=== PATIENT | male | born 1965 | race Caucasian/White ===

== ENCOUNTER 2016-12-11 11:59 | Emergency (ER) | payer OTHER ==
[~2016-12-11] VITALS: Ht 188 cm; Wt 109.0 kg
[~2016-12-11 11:59] MED LIST: BACTDS PO; IBUP400T22 PO; QUET400T PO
[2016-12-11 12:10] VITALS: Ht 188 cm; Wt 109.0 kg
[2016-12-11] MEDS ORDERED: SOD CHLORIDE 0.9% 1,000 ML IV STA (12:27)
[2016-12-11 12:46] LABS: ADD SCAN DIFF NO
[2016-12-11 12:50] LABS: ABNORMAL IP MESSAGE 1; BASOPHILS % 0.3 % (0.0-2.0); EOSINOPHILS # 0.1 10^3/ul (0.0-0.5); EOSINOPHILS % 1.8 % (0.0-7.0); HEMOGLOBIN 12.3 g/dl (14.0-18.0); LYMPHOCYTES % 59.8 % (15.0-51.0); MEAN CORPUSCULAR HEMOGLOBIN 32.3 pg (29.0-33.0); MEAN CORPUSCULAR HGB CONC 35.1 g/dl (32.0-37.0); MEAN CORPUSCULAR VOLUME 91.9 fl (82.0-101.0); MEAN PLATELET VOLUME 10.6 fl (7.4-10.4); MONOCYTE # 0.3 10^3/ul (0.3-0.9); MONOCYTES % 9.1 % (0.0-11.0); NEUTROPHIL # 0.9 10^3/ul (1.6-7.5); NEUTROPHILS % 28.7 % (39.0-77.0); PLATELET COUNT 91 10^3/UL (140-415); RED BLOOD COUNT 3.81 10^6/ul (4.70-6.10); RED CELL DISTRIBUTION WIDTH 13.7 % (11.5-14.5); WHITE BLOOD COUNT 3.3 10^3/ul (4.8-10.8)
[2016-12-11 13:03] LABS: INR 1.13; PARTIAL THROMBOPLASTIN TIME 25.5 Sec (25.0-35.0); PROTIME 14.5 Sec (12.2-14.2); PT RATIO 1.1
[2016-12-11 13:04] LABS: LACTIC ACID 2.2 mmol/L (0.5-2.2)
[2016-12-11 13:12] LABS: ALBUMIN 3.5 g/dl (3.3-4.9); CHLORIDE 102 mmol/L (97-110); SODIUM 137 mmol/L (135-144)
[2016-12-11 13:15] LABS: ALANINE AMINOTRANSFERASE 36 IU/L (13-69); ALKALINE PHOSPHATASE 64 IU/L (42-121); ANION GAP 10 (8-16); ASPARTATE AMINO TRANSFERASE 24 IU/L (15-46); BILIRUBIN,INDIRECT 0.2 mg/dl (0-1.1); BILIRUBIN,TOTAL 0.2 mg/dl (0.2-1.3); BLOOD UREA NITROGEN 11 mg/dl (7-20); CARBON DIOXIDE 28 mmol/L (21-31); CREATINE KINASE 82 IU/L (23-200); CREATININE 0.62 mg/dl (0.61-1.24); GLUCOSE 116 mg/dl (70-220)
[2016-12-11 13:16] LABS: CALCIUM 8.8 mg/dl (8.4-10.2)
[2016-12-11 13:17] LABS: CK-MB 2.69 ng/ml (0.0-2.4); ETHANOL < 10.0 mg/dl; TROPONIN-I < 0.012 ng/ml (0.00-0.12)
--- NOTE | 2016-12-11 13:26 | RADRPT ---
PROCEDURE: XR Chest. CLINICAL INDICATION: chest pain, altered mental status TECHNIQUE: Single frontal view of the chest was obtained COMPARISON: None FINDINGS: The heart and mediastinum are within normal limits. The lungs are clear. There is no pleural effusion or pneumothorax. RPTAT: AA IMPRESSION: No acute disease. .Je Tan MD, MD Date Time Electronically viewed and signed by .Je Tan MD, on 12/11/2016 13:25 .S/
--- NOTE | 2016-12-11 13:30 | RADRPT ---
PROCEDURE: CT Brain without. CLINICAL INDICATION: Altered mental status. TECHNIQUE: A CT of the brain was performed on multidetector high-resolution CT scanner utilizing a xial sections from the skull base through the vertex without contrast. The scan was reviewed in sof t tissue brain and high frequency resolution bone algorithm windows. Images were reviewed on a high -resolution PACS workstation. One or more the following does reduction techniques were utilized: Aut omated exposure control, adjustment of the mA/ or kV according to patient's size, or use of iterativ e reconstruction technique. The exam CTDI = 44.26 mGy and the DLP = 720.23 mGy-cm. COMPARISON: None available. FINDINGS: The ventricles and sulci are minimally prominent indicative of volume loss. There is no intracranial hemorrhage, mass effect or midline shift. No abnormal intra-axial or extra-axial fluid collections are seen. The strange/white matter differentiation is preserved. There are minimal scattered foci of hypoattenuation in the white matter, which are nonspecific in et iology but likely reflect chronic small vessel ischemic changes. There are minimal intracranial vas cular calcifications consistent with atherosclerosis. Mild deformity of the right lamina papyracea i s noted, likely chronic. The visualized paranasal sinuses are essentially clear. IMPRESSION: 1. No acute intracranial hemorrhage, transcortical infarction or mass effect. 2. Minimal intracranial atherosclerosis and chronic small vessel ischemic changes. 3. Minimal generalized cerebral volume loss. RPTAT: HH .Mesfin Calderon MD, MD Date Time Electronically viewed and signed by .Mesfin Calderon MD, MD on 12/11/2016 13:30 .N/
--- NOTE | 2016-12-11 13:54 | ERD ---
ER Documentation Chief Complaint Date/Time DATE: 12/11/16 TIME: 13:47 Chief Complaint homeless states sick and total body pain HPI This is a 51-year-old male that was brought into the emergency department by EMS. The patient is homeless and was sleeping on the side of the street. A bystander phone 911. When EMS arrived the patient stated he was experiencing diffuse myalgias. He was unable to indicate when his body aches began. He denies any fever shaking or chills. The patient denied a headache or changes in vision. The patient was very reluctant to provide any further history and appeared very guarded. He however denied any suicidal homicidal thoughts ideations. He was denying any auditory tactile or visual hallucinations. ROS All systems reviewed and are negative except as per history of present illness. Medications Home Meds Reported Medications Quetiapine Fumarate* (Seroquel*) 400 Mg Tablet, 400 MG PO HS, TAB 09/02/14 Ibuprofen* (Motrin*) 400 Mg Tab, 400 MG PO TID Y for PAIN, TAB 09/02/14 Discontinued Scripts Sulfamethoxazole-Trimethoprim* (Bactrim* DS) 800-160 Mg Tab, 1 TAB PO BID for 10 Days, TAB Prov:ASHVIN SCANLON PA-C 07/07/15 Allergies Allergies: Coded Allergies: No Known Allergy (Unverified , 09/02/14) PMhx/Soc Medical and Surgical Hx: pt denies Medical Hx, pt denies Surgical Hx History of Surgery: No Anesthesia Reaction: No Hx Neurological Disorder: No Hx Respiratory Disorders: No Hx Cardiac Disorders: No Hx Psychiatric Problems: No Hx Miscellaneous Medical Probl: No Hx Alcohol Use: Yes Hx Substance Use: No Hx Tobacco Use: Yes Smoking Status: Current some day smoker Physical Exam Vitals Vital Signs Date Time Temp Pulse Resp B/P Pulse Ox O2 Delivery O2 Flow Rate FiO2 12/11/16 12:10 97.7 111 18 123/65 95 Physical Exam Constitutional:Well-developed. Disheveled. HEENT:Normocephalic. Atraumatic.Pupils were equal round reactive to light. Moist mucous membranes.No tonsillar exudates. No nasoseptal hematoma. No hemotympanum. Neck: No nuchal rigidity. No lymphadenopathy. No posterior cervical spine tenderness or step-offs. Respiratory: Not using accessory muscles of respiration.Lungs were clear to auscultation bilaterally. No rhonchi. No rales. No wheezing. Cardiovascular: Regular rate regular rhythm.No murmurs. No rubs were appreciated.S1, S2 normal. Distal pulses are palpable 2+ bilaterally. GI: Abdomen was soft. Nontender. Non Distended. No pulsatile abdominal masses or bruits. No rebound. No guarding. Bowel sounds were present and normal. Muscle skeletal: Full range of motion of both the upper and lower extremities bilaterally.Normal muscle tone.No assymetrical calf tenderness or swelling. Skin: No petechia, no purpura. No maculopapular rash. I am unable to appreciate for any ulcers of the patient's feet as the patient was refusing to take off his shoes or pants for complete examination NEURO: Patient was alert to person but not to place or time. Drowsy but easily arousable. The patient appeared very guarded and was reluctant to answer many questions. He however denied any suicidal homicidal thoughts ideations. No focal neurological deficits. Result Diagram: 12/11/16 1230 12/11/16 1230 Results 24 hrs Laboratory Tests Test 12/11/16 12:30 White Blood Count 3.310^3/ul Red Blood Count 3.8110^6/ul Hemoglobin 12.3g/dl Hematocrit 35.0% Mean Corpuscular Volume 91.9fl Mean Corpuscular Hemoglobin 32.3pg Mean Corpuscular Hemoglobin Concent 35.1g/dl Red Cell Distribution Width 13.7% Platelet Count 9110^3/UL Mean Platelet Volume 10.6fl Neutrophils % 28.7% Lymphocytes % 59.8% Monocytes % 9.1% Eosinophils % 1.8% Basophils % 0.3% Nucleated Red Blood Cells % 0.0/100WBC Neutrophils # 0.910^3/ul Lymphocytes # 2.010^3/ul Monocytes # 0.310^3/ul Eosinophils # 0.110^3/ul Basophils # 0.010^3/ul Nucleated Red Blood Cells # 0.010^3/ul Prothrombin Time 14.5Sec Prothrombin Time Ratio 1.1 INR International Normalized Ratio 1.13 Activated Partial Thromboplast Time 25.5Sec Sodium Level 137mmol/L Potassium Level 3.0mmol/L Chloride Level 102mmol/L Carbon Dioxide Level 28mmol/L Anion Gap 10 Blood Urea Nitrogen 11mg/dl Creatinine 0.62mg/dl Glucose Level 116mg/dl Lactic Acid Level 2.2mmol/L Calcium Level 8.8mg/dl Total Bilirubin 0.2mg/dl Direct Bilirubin 0.00mg/dl Indirect Bilirubin 0.2mg/dl Aspartate Amino Transf (AST/SGOT) 24IU/L Alanine Aminotransferase (ALT/SGPT) 36IU/L Alkaline Phosphatase 64IU/L Ammonia 13umol/l Creatine Kinase 82IU/L Creatine Kinase Index 3.3 Creatinine Kinase MB (Mass) 2.69ng/ml Troponin I < 0.012ng/ml Total Protein 6.0g/dl Albumin 3.5g/dl Globulin 2.50g/dl Albumin/Globulin Ratio 1.40 Ethyl Alcohol Level < 10.0mg/dl Current Medications Medications (Trade) Dose Ordered Sig/Delvis Route PRN Reason Start Time Stop Time Status Last Admin Dose Admin Sodium Chloride (NS) 1,000 ml @ 1,000 mls/hr Q1H STAT IV 12/11/16 12:27 12/11/16 13:26 DC 12/11/16 12:48 Procedures/MDM The patient presented to the emergency department with an acute and persistent change in their mental status. The differential diagnosis is diverse however reversible causes such as hypoglycemia, opiate overdose, thiamine deficiency were immediately considered. The patient was placed on a cardiac monitor technician, continuous pulse oximetry and IV access was established. The patients airway was secure however hypoxic events such as anemia, shock, or severe pulmonary disease were all considered as etiologies in this patients presentation. Circulation assessed with good cap refill and did not require fluids or pressure support. Finger stick for rapid glucose determined to be normal. I obtained a CT scan of the patient's head which showed no acute intracerebral hemorrhage mass-effect or midline shift. Chest radiograph showed no infiltrates or pneumothorax. The patient leukopenia with no thrombocytopenia. There is no renal failure. 12 Lead EKG tracing ordered and reviewed by myself showed: Sinus tachycardia 106 bpm and no arrhythmia. FL interval normal. QRS duration normal. No ST segment elevation No ST segment depression. No changes consistent with acute ischemia. The patient had IV access was established by nursing staff and was given a liter bolus of 0.9 normal saline. Nursing staff approached me and indicated that the patient had become very belligerent. He began yelling at nursing staff. He had removed his own IV. He left with his belongings and had eloped without completion of treatment Departure Diagnosis: Primary Impression: Myalgia Condition: JESSIE Pope Dec 11, 2016 13:54
== END 2016-12-11 13:56 | disposition left against medical advice (07) ==
LOC: E/R 11:59
DX: M79.1 Myalgia (principal); R07.9 Chest pain, unspecified; F17.210 Nicotine dependence, cigarettes, uncomplicated; R41.82 Altered mental status, unspecified
CPT/HCPCS: 70450; 71010; 80053; 80306; 82140; 82550; 82553; 83605; 84484; 85025; 85610; 85730; 93005; J7030

== ENCOUNTER 2016-12-13 14:03 | Emergency (ER) | payer OTHER ==
[~2016-12-13] VITALS: Ht 185.4 cm; Wt 104.0 kg
[~2016-12-13 14:03] MED LIST changes: -BACTDS PO
[2016-12-13 14:22] VITALS: Ht 185.4 cm; Wt 104.0 kg
[2016-12-13] MEDS ORDERED: ALPR2TAB PO (16:56)
[2016-12-13] MEDS ORDERED: METH10SO PO (17:00)
[2016-12-13] MEDS ORDERED: IBUPROFEN 600 MG TAB PO ONE (17:30)
--- NOTE | 2016-12-14 13:50 | ERD ---
ER Documentation Chief Complaint Date/Time DATE: 12/13/16 TIME: 18:41 Chief Complaint AP X5 WEEKS "SINCE I'VE BEEN TAKEN OFF METHADONE" HPI 51 year old homeless male with a history of narcotic addiction s/p methadone for many years complaining of diffuse abdominal pain. He states the pain is intermittent, with associate diarrhea. No exacerbating or alleviating factors. He also has associated body aches. It has been going on for 5 weeks, ever since he stopped methadone. He denies constipation, hematochezia or melena. No fevers or chills. No weight loss or night sweats. He is asking for a shot of morphine as he thinks this will alleviate his pain. Per nurse, he was asking for food. ROS All systems reviewed and are negative except as per history of present illness. Medications Home Meds Reported Medications Methadone Hcl* (Methadone Hcl*) 10 Mg/5 Ml Solution, 80 MG PO DAILY, ML 12/13/16 Alprazolam* (Xanax*) 2 Mg Tablet, 2 MG PO DAILY Y for ANXIETY, TAB 12/13/16 Quetiapine Fumarate* (Seroquel*) 400 Mg Tablet, 400 MG PO BID, TAB 09/02/14 Discontinued Reported Medications Ibuprofen* (Motrin*) 400 Mg Tab, 400 MG PO TID Y for PAIN, TAB 09/02/14 Discontinued Scripts Sulfamethoxazole-Trimethoprim* (Bactrim* DS) 800-160 Mg Tab, 1 TAB PO BID for 10 Days, TAB Prov:ASHVIN SCANLON PA-C 07/07/15 Allergies Allergies: Coded Allergies: No Known Allergy (Unverified , 12/13/16) PMhx/Soc Medical and Surgical Hx: pt denies Medical Hx History of Surgery: No Anesthesia Reaction: No Hx Neurological Disorder: No Hx Respiratory Disorders: No Hx Cardiac Disorders: No Hx Psychiatric Problems: No Hx Miscellaneous Medical Probl: No Hx Alcohol Use: Yes Hx Substance Use: No (history of opiate use) Hx Tobacco Use: Yes Smoking Status: Current every day smoker FmHx Family History: No diabetes Physical Exam Vitals Vital Signs Date Time Temp Pulse Resp B/P Pulse Ox O2 Delivery O2 Flow Rate FiO2 12/13/16 14:22 98.5 98 20 135/84 100 Physical Exam Const: Unkempt, no apparent distress, well-nourished Head: Atraumatic Eyes: Normal Conjunctiva ENT: Normal External Ears, Nose and Mouth. Neck: Full range of motion.No meningismus. Resp: Clear to auscultation bilaterally Cardio: Regular rate and rhythm, no murmurs Abd: Soft, ventral abdominal large hernia, reducible, without tenderness to palpation. Abdomen non tender, non distended. Normal bowel sounds Skin: No petechiae or rashes Back: No midline or flank tenderness Ext: No cyanosis, or edema Neur: Awake and alert Psych: Normal Mood and Affect Results 24 hrs Current Medications Medications (Trade) Dose Ordered Sig/Delvis Route PRN Reason Start Time Stop Time Status Last Admin Dose Admin Ibuprofen (Motrin) 600 mg ONCE ONCE PO 12/13/16 17:30 12/13/16 17:31 DC 12/13/16 17:29 Procedures/MDM Patient is presenting with 5 weeks of diffuse, intermittent abdominal pain. He is afebrile with normal vitals. I considered but have a low suspicion for small bowel obstruction, perforated viscous, constipation, volvulus, colitis, gastroenteritis, incarcerated hernia. I discussed with the patient that it is unlikely his abdominal pain is due to withdrawal from methadone, as it has been several weeks. However, at this time, I do not think there is a serious, emergent etiology to his pain. I told him I could not offer him narcotics, but did offer him ibuprofen, which he agreed to take. Patient had eloped prior to receiving discharge papers. Departure Diagnosis: Primary Impression: Chronic generalized abdominal pain Additional Impression: Hernia of anterior abdominal wall Condition: Stable Patient Instructions: Abdominal Pain, What Is a Hernia? Referrals: [facility] YOU HAVE RECEIVED A MEDICAL SCREENING EXAM AND THE RESULTS INDICATE THAT YOU DO NOT HAVE A CONDITION THAT REQUIRES URGENT TREATMENT IN THE EMERGENCY DEPARTMENT. FURTHER EVALUATION AND TREATMENT OF YOUR CONDITION CAN WAIT UNTIL YOU ARE SEEN IN YOUR DOCTORS OFFICE WITHIN THE NEXT 1-2 DAYS. IT IS YOUR RESPONSIBILITY TO MAKE AN APPOINTMENT FOR FOLOW-UP CARE. IF YOU HAVE A PRIMARY DOCTOR --you should call your primary doctor and schedule an appointment IF YOU DO NOT HAVE A PRIMARY DOCTOR YOU CAN CALL OUR PHYSICIAN REFERRAL HOTLINE AT IF YOU CAN NOT AFFORD TO SEE A PHYSICIAN YOU CAN CHOSE FROM THE FOLLOWING [facility] [address] [facility] [address] [facility] [email or web address] [address] [facility] [address] [facility] [address] [facility]. [facility] [address] [facility]. [facility] YOU HAVE RECEIVED A MEDICAL SCREENING EXAM AND THE RESULTS INDICATE THAT YOU DO NOT HAVE A CONDITION THAT REQUIRES URGENT TREATMENT IN THE EMERGENCY DEPARTMENT. FURTHER EVALUATION AND TREATMENT OF YOUR CONDITION CAN WAIT UNTIL YOU ARE SEEN IN YOUR DOCTORS OFFICE WITHIN THE NEXT 1-2 DAYS. IT IS YOUR RESPONSIBILITY TO MAKE AN APPOINTMENT FOR FOLOW-UP CARE. IF YOU HAVE A PRIMARY DOCTOR --you should call your primary doctor and schedule and appointment IF YOU DO NOT HAVE A PRIMARY DOCTOR YOU CAN CALL OUR PHYSICIAN REFERRAL HOTLINE AT . IF YOU CAN NOT AFFORD TO SEE A PHYSICIAN YOU CAN CHOSE FROM THE FOLLOWING [facility] INSTITUTIONS: [facility] [address] [place] [address] [facility] [address] [place] [address] [facility] [address] [place] [address] MARION PRABHAKAR MD Dec 14, 2016 13:50
== END 2016-12-13 18:37 | disposition home or self-care (01) ==
LOC: E/R 14:03
DX: R10.84 Generalized abdominal pain (principal); K43.9 Ventral hernia without obstruction or gangrene; F17.210 Nicotine dependence, cigarettes, uncomplicated
CPT/HCPCS: 99284

== ENCOUNTER 2017-01-17 06:24 | Emergency (ER) | payer OTHER ==
[~2017-01-17] VITALS: Ht 172.7 cm; Wt 80.0 kg
[~2017-01-17 06:24] MED LIST changes: +ALPR2TAB PO; -IBUP400T22 PO; +METH10SO PO
[2017-01-17 06:32] VITALS: Ht 172.7 cm; Wt 80.0 kg
[2017-01-17] MEDS ORDERED: IBUPROFEN LIQUID (PED) 20 MG/ML CUP PO STA (06:52)
[2017-01-17] MEDS ORDERED: DIPHTH/TET/ACEL PERTUSS (ADULT) 0.5 ML VIAL IM* ONE (07:30)
[2017-01-17] MEDS ORDERED: QUET300T18 PO (07:31)
--- NOTE | 2017-01-17 07:32 | ERD ---
ER Documentation Chief Complaint Date/Time DATE: 01/17/17 TIME: 07:27 Chief Complaint finger laceration and needs med refill for Seroquel HPI Patient is a 51-year-old homeless male with a past medical history of psychiatric disease, opioid abuse currently on methadone brought in by paramedics who presents to the emergency department for laceration on his right hand as well as for refill of Seroquel. Patient states he woke up this morning and scratched his hand with his fingernails. Patient reports sleeping on the streets. Patient denies any objects cutting his hand or bites. Patient denies any falls or trauma. Patient does not recall his last tetanus vaccination. Patient denies any fevers or chills. Patient requesting Band-Aid be placed on his wound. Patient denies any homicidal or suicidal thoughts at this time. Patient denies any hallucinations. Patient also requesting refill of his Seroquel. Patient states he does not know the dose however he states that [facility] knows the dose. ROS All systems reviewed and are negative except as per history of present illness. Medications Home Meds Active Scripts Quetiapine Fumarate* (Seroquel*) 300 Mg Tablet, 300 MG PO BID for 30 Days, TAB Prov:DENITA FOX PA-C 01/17/17 Reported Medications Methadone Hcl* (Methadone*) 10 Mg Tab, 10 MG PO DAILY, TAB [facility] 01/17/17 Quetiapine Fumarate* (Quetiapine Fumarate*) 300 Mg Tablet, 300 MG PO BID, TAB 01/17/17 Discontinued Reported Medications Methadone Hcl* (Methadone Hcl*) 10 Mg/5 Ml Solution, 80 MG PO DAILY, ML 12/13/16 Alprazolam* (Xanax*) 2 Mg Tablet, 2 MG PO DAILY Y for ANXIETY, TAB 12/13/16 Quetiapine Fumarate* (Seroquel*) 400 Mg Tablet, 400 MG PO BID, TAB 09/02/14 Allergies Allergies: Coded Allergies: No Known Allergy (Unverified , 01/17/17) PMhx/Soc History of Surgery: No Anesthesia Reaction: No Hx Neurological Disorder: No Hx Respiratory Disorders: No Hx Cardiac Disorders: No Hx Psychiatric Problems: Yes (bipolar, depression) Hx Miscellaneous Medical Probl: No Hx Alcohol Use: Yes Hx Substance Use: No (history of opiate use) Hx Tobacco Use: Yes Smoking Status: Current every day smoker Physical Exam Vitals Vital Signs Date Time Temp Pulse Resp B/P Pulse Ox O2 Delivery O2 Flow Rate FiO2 01/17/17 06:32 98.7 90 18 134/72 97 Physical Exam General: Disheveled male. Appears in no acute distress. Speaking in full sentences. Head: Normocephalic, atraumatic. Eyes: Pupils are equally reactive bilaterally. EOMs grossly intact. No conjunctival erythema. Neck: Supple. No lymphadenopathy or thyromegaly. No meningeal signs. Lungs: Clear to auscultation bilaterally. No rhonchi, wheezing, rales or coarse breath sounds. Heart: Regular rate and rhythm. No murmurs, rubs or gallops. Extremities: No pedal edema, unilateral leg swelling. 5/5 strength in all extremities. Neurologic: Alert and oriented x3. Moving all four extremities. Normal speech. Steady gait. Skin: Normal color. Warm and dry. No rashes or lesions. Right hand/arm: Numerous superficial abrasions noted throughout the patient's right and left upper extremities. Small superficial abrasion noted to the dorsal aspect of the patient's right hand. Minimal bleeding. Full ROM. No crepitus. Non-tender to palpation. Sensation intact to light touch. Neurovascularly intact. (Able to give thumbs up, make an ok sign, cross digits 2 and 3, thumb to pinky opposition. 2+ RP.) No snuffbox tenderness. Results 24 hrs Current Medications Medications (Trade) Dose Ordered Sig/Delvis Route PRN Reason Start Time Stop Time Status Last Admin Dose Admin Ibuprofen (Motrin Liquid (Ped)) 800 mg ONCE STAT PO 01/17/17 06:52 01/17/17 06:56 DC Diphtheria/ Tetanus/Acell Pertussis (Adacel) 0.5 ml ONCE ONCE IM* 01/17/17 07:30 01/17/17 07:31 DC 01/17/17 07:17 Procedures/MDM ED COURSE: The patient was stable throughout ED course. I kept the patient and/or family informed of laboratory and diagnostic imaging results throughout the ED course. ED eeg technician contacted [facility] to determine the patient's Seroquel dosage. Patient is currently taking Seroquel 300 mg twice daily. MEDICAL DECISION MAKING: Patient is a 51-year-old male who presents to the emergency department for superficial abrasion to his right hand and a refill of his Seroquel. Vital signs were reviewed. Patient is afebrile. Patient was not hypoxic. Patient was hemodynamically stable. Patient states he obtained a superficial abrasion after scratching his hand upon waking up this morning. Patient was offered wound dressing however he declined. Patient requested only a bandage be placed to the affected area. Patient states "he can take care of his wound". Patient was given his tetanus vaccination today. Wound appears to be solely superficial. No indication for suture repair was indicated at this time. [facility] pharmacy was contacted to determine the patient's Seroquel dose. Per ED eeg technician, patient is currently taking Seroquel 300 mg twice daily. At this time, the patient's presentation is most consistent with superficial abrasion and refill for medication. Low suspicion for cellulitis, abscess, bite wound, deep space infection, deep laceration, tendon or ligament injury. Low suspicion for alcohol intoxication, opiate overdose, drug overdose at this time. Patient was given instructions to follow-up with his primary care physician at the [facility] for further refills of his medication including future prescriptions for methadone as well as Seroquel. PRESCRIPTION: Seroquel DISCHARGE: At this time, patient is stable for discharge and outpatient management. I have instructed the patient to follow-up with his/her primary care physician in 1-2 days. I have discussed with the patient the possibility of needing to see a specialist for further workup and imaging studies if symptoms persist. I have instructed the patient to promptly return to the ER for any new or worsening symptoms including increased pain, fever, nausea, vomiting, weakness or LOC. The patient and/or family expressed understanding of and agreement with this plan. All questions were answered. Home care instructions were provided. Departure Diagnosis: Primary Impression: Encounter for medication refill Additional Impression: Superficial abrasion Condition: Stable Patient Instructions: Taking Medicine Safely, Abrasion Additional Instructions: Call your primary care doctor TOMORROW for an appointment during the next 1-2 days.See the doctor sooner or return here if your condition worsens before your appointment time. DENITA FOX PA-C January 17, 2017 07:32
[2017-01-17] MEDS ORDERED: METH10TA2 PO (07:34)
[2017-01-17] MEDS ORDERED: QUET300T13 PO (07:36)
== END 2017-01-17 07:57 | disposition home or self-care (01) ==
LOC: FTE 06:24
DX: Z76.0 Encounter for issue of repeat prescription (principal); S60.511A Abrasion of right hand, initial encounter; S40.812A Abrasion of left upper arm, initial encounter; F17.210 Nicotine dependence, cigarettes, uncomplicated; X58.XXXA Exposure to other specified factors, initial encounter; Y92.9 Unspecified place or not applicable; Z23 Encounter for immunization
CPT/HCPCS: 90471; 90715; Z7502

== ENCOUNTER 2017-04-04 11:01 | Emergency (ER) | payer OTHER ==
[~2017-04-04] VITALS: Wt 90.9 kg
[~2017-04-04 11:01] MED LIST changes: -ALPR2TAB PO; -METH10SO PO; +METH10TA2 PO; +QUET300T13 PO; +QUET300T18 PO; -QUET400T PO
[2017-04-04] MEDS ORDERED: SULF1TAB31 PO (12:35)
[2017-04-04] MEDS ORDERED: QUET25TA26 PO (12:35)
[2017-04-04] MEDS ORDERED: CEPH-443 PO (12:35)
--- NOTE | 2017-04-04 12:53 | ERA ---
ER Documentation Chief Complaint Date/Time DATE: 04/04/17 TIME: 12:42 Chief Complaint melissa arm abscesses HPI 51-year-old male presenting with a chief complaint of rash 1 month. Patient has been put on clindamycin 1 month ago without resolution. Patient states that the rash 1 month ago started on the posterior forearm around the elbow and has since healed but new erosions have appeared closer to the rest. Denies fever, rapid progression of symptoms, recent antibiotic use, discharge, symptomatic close contacts, diabetes, pruritus, pain or history of bite, medications or other possible environmental triggers. Patients vaccination status is up to date. Denies any recent travel. ROS All systems reviewed and are negative except as per history of present illness. Medications Home Meds Active Scripts Quetiapine Fumarate* (Seroquel*) 25 Mg Tablet, 25 MG PO BID, #28 TAB Prov:CONSTANTINE GUERIN PA-C 04/04/17 Cephalexin* (Keflex*) 500 Mg Capsule, 500 MG PO QID for 5 Days, CAP Prov:CONSTANTINE GUERIN PA-C 04/04/17 Sulfamethoxazole/Trimethoprim* (Bactrim Ds* Tablet) 1 Each Tablet, 1 TAB PO BID , #14 TAB Prov:CONSTANTINE GUERIN PA-C 04/04/17 Quetiapine Fumarate* (Seroquel*) 300 Mg Tablet, 300 MG PO BID for 30 Days, TAB Prov:DENITA FOX PA-C 01/17/17 Reported Medications Methadone Hcl* (Methadone*) 10 Mg Tab, 10 MG PO DAILY, TAB [facility] 01/17/17 Quetiapine Fumarate* (Quetiapine Fumarate*) 300 Mg Tablet, 300 MG PO BID, TAB 01/17/17 Allergies Allergies: Coded Allergies: No Known Allergy (Unverified , 04/04/17) PMhx/Soc Medical and Surgical Hx: pt denies Medical Hx, pt denies Surgical Hx History of Surgery: No Anesthesia Reaction: No Hx Neurological Disorder: No Hx Respiratory Disorders: No Hx Cardiac Disorders: No Hx Psychiatric Problems: Yes (bipolar, depression) Hx Miscellaneous Medical Probl: No Hx Alcohol Use: Yes Hx Substance Use: No (history of opiate use) Hx Tobacco Use: Yes Smoking Status: Current every day smoker Physical Exam Vitals Vital Signs Date Time Temp Pulse Resp B/P Pulse Ox O2 Delivery O2 Flow Rate FiO2 04/04/17 11:04 98.1 78 20 141/75 98 Physical Exam Const: Healthy-appearing. Well-nourished. Well-developed. No acute distress. Skin: Lower posterior forearm bilaterally diffuse skin erosions including the epithelial skin without including a subcutaneous tissues. No bulla noted. Negative Nikolsky's/acantholysis. No tenderness to palpation. Cap refill less than 2 seconds Ext: No edema or palpable cord. Normal movement of all extremities grossly observed. Neur: Awake, alert and oriented x3. Neurovascularly intact bilaterally. Oral: No oral edema visualized. Mucous membranes moist and pink. Head: Normocephalic, Atraumatic. Eyes: Non-injected; No discharge. Ears: Normal External Ears, EACs clear. Nose: Normal external nose; no discharge, or sinus tenderness. Neck: No cervical lymphadenopathy, masses or goiter palpated. ~ No meningismus. Pulm: Good air movement in upper and lower respiratory tracts. No dyspnea, stridor, tripoding or drooling. Clear to auscultation bilaterally. Cardio: Regular rate and rhythm; No murmurs, gallops or rubs auscultated. No JVD grossly observed. No cyanosis. Capillary refill less than 2 seconds. Abd: Soft, non tender, non distended. No guarding, masses. Normal bowel sounds. MS: Normal motor strength, normal tone with gross examination. Back: No midline, flank or CVA tenderness. Psych: Normal Mood and Affect. Procedures/MDM This is a 51-year-old male with a chief complaint of rash as described in history physical examination. No mucous membrane involvement. At this time of little suspicion for TEN, SJS, pemphigus vulgaris, erythema multiforme or other acute skin disorders. Patient was recently on clindamycin thus will receive Keflex and Bactrim and have advised him to follow-up with dermatology. Patient has been given a list of dermatology practice that he can follow-up with. He has verbally responded that he acknowledges and agrees to the assessment and plan. Patient also is requesting refill of Seroquel. A 14 day prescription will be given with recommendation to follow-up with PCP for regular prescription refills. Vitals are stable current condition is appropriate for discharge will be discharged at this time with discharge instructions and return precautions. Departure Diagnosis: Primary Impression: Pemphigoid Condition: Stable Patient Instructions: Mrsa Skin Infection, Suspected Or Confirmed Additional Instructions: Follow-up with PCP in the next 1-3 days. Follow-up with dermatology in the next 1-3 days. If you have any questions about medications as before you leave or ask the pharmacist. CONSTANTINE GUERIN PA-C Apr 04, 2017 12:53
[2017-04-04 13:04] VITALS: BP 132/73; PULSE 73; RESP 20; TEMP 98.1
== END 2017-04-04 13:05 | disposition home or self-care (01) ==
LOC: FTE 11:01
DX: L12.9 Pemphigoid, unspecified (principal); F17.210 Nicotine dependence, cigarettes, uncomplicated
CPT/HCPCS: 99284

== ENCOUNTER 2017-04-11 23:50 | Emergency (ER) | payer OTHER ==
[~2017-04-11] VITALS: Ht 182.9 cm; Wt 90.0 kg
[~2017-04-11 23:50] MED LIST changes: +CEPH-443 PO; +QUET25TA26 PO; +SULF1TAB31 PO
[2017-04-11 23:56] VITALS: Ht 182.9 cm; Wt 90.0 kg
[2017-04-12] MEDS ORDERED: QUET300T13 PO (03:21)
[2017-04-12 03:32] VITALS: BP 120/77; PULSE 78; RESP 20; TEMP 98.4
[2017-04-12] MEDS ORDERED: QUET400T PO (03:32)
--- NOTE | 2017-04-12 04:45 | ERD ---
ER Documentation Chief Complaint Date/Time DATE: 04/12/17 TIME: 04:32 Chief Complaint melissa forearm non healing wound/abscess HPI 51-year-old male presented ED with nonhealing wounds on his dorsal wrists bilaterally. Patient stated that he started having these about 2 months ago. They are itching and painful. He was seen in the clinic and was given 3 weeks course of clindamycin. He finished the clindamycin without any improvement in his wound. He was seen here 1 week ago, was given prescription of Bactrim DS and Keflex. He finished both of antibiotics, again without any improvement of his wounds. Patient stated that he had noticed a lesion on the shaft of his penis and left foot today. Denies fever or chills. Patient has history of schizophrenia, he is also requesting a refill for Seroquel. Denies visual or auditory hallucinations. Denies suicidal or homicidal ideations ROS All systems reviewed and are negative except as per history of present illness. Medications Home Meds Active Scripts Quetiapine Fumarate* (Seroquel*) 400 Mg Tablet, 400 MG PO BID, #14 TAB Prov:DEON RODRIGUEZ NP 04/12/17 Quetiapine Fumarate* (Seroquel*) 25 Mg Tablet, 25 MG PO BID, #28 TAB Prov:CONSTANTINE GUERIN PA-C 04/04/17 Cephalexin* (Keflex*) 500 Mg Capsule, 500 MG PO QID for 5 Days, CAP Prov:CONSTANTINE GUERIN PA-C 04/04/17 Sulfamethoxazole/Trimethoprim* (Bactrim Ds* Tablet) 1 Each Tablet, 1 TAB PO BID , #14 TAB Prov:CONSTANTINE GUERIN PA-C 04/04/17 Quetiapine Fumarate* (Seroquel*) 300 Mg Tablet, 300 MG PO BID for 30 Days, TAB Prov:DENITA FOX PA-C 01/17/17 Reported Medications Methadone Hcl* (Methadone*) 10 Mg Tab, 10 MG PO DAILY, TAB [facility] 01/17/17 Quetiapine Fumarate* (Quetiapine Fumarate*) 300 Mg Tablet, 300 MG PO BID, TAB 01/17/17 Discontinued Scripts Quetiapine Fumarate* (Seroquel*) 300 Mg Tablet, 300 MG PO BID, #14 TAB Prov:DEON RODRIGUEZ CENTRIFUGAL DRIER OPERATOR 04/12/17 Allergies Allergies: Coded Allergies: No Known Allergy (Unverified , 04/04/17) PMhx/Soc History of Surgery: No Anesthesia Reaction: No Hx Neurological Disorder: No Hx Respiratory Disorders: No Hx Cardiac Disorders: No Hx Psychiatric Problems: Yes (bipolar, depression; ANXIETY) Hx Miscellaneous Medical Probl: No Hx Alcohol Use: Yes (HX OF SOCIAL DRINKING.) Hx Substance Use: No (history of opiate use) Hx Tobacco Use: Yes (CIGGARETES.) Smoking Status: Current every day smoker Physical Exam Vitals Vital Signs Date Time Temp Pulse Resp B/P Pulse Ox O2 Delivery O2 Flow Rate FiO2 04/12/17 03:32 98.4 78 20 120/77 98 Room Air 04/11/17 23:56 98.4 130 20 136/64 97 Physical Exam General: Well-developed, well-nourished, conscious and coherent, in no distress Skin: Warm and dry, good texture and turgor. Large area of confluent skin erosions noted bilateral dorsal wrists, right is worse than the left. Patient' s fingertips are blood sustained. Discrete, erythematous nodules noted on the bilateral forearms. No lesion noted on his feet. Head: Normocephalic without evidence of trauma Eyes: Sclera and conjunctivae normal; pupils equal, round, and reactive to light; extraocular movements are intact Chest: Normal AP diameter. Good expansion without retractions. Nontender. Lungs are clear to auscultate bilaterally with good tidal volume Heart: Regular rate and rhythm. No murmur, rub, or gallops heard Extremities: Full range of motion. Good strength bilaterally. No clubbing, cyanosis, or edema. Peripheral pulses are intact. Sensation intact : Uncircumsized male. Penis normal, no penile discharge. Normal scrotum, no mass noted. No inguinal hernia. No lesions. Neuro: Alert and oriented 4, GCS 15. Cranial nerves grossly intact. Motor and sensory exams nonfocal. Moves all extremities. Speech clear. Gait normal Procedures/MDM 51-year-old male with a history of psychiatric disorder presented to ED with nonhealing skin erosions on his bilateral wrists. I suspect his vzpa-adfz-jqk motions are due to picking, as evidenced by his bloodstained fingertips. Patient also has erythematous nodules on his bilateral forearms, some with central erosions as well. 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 I doubt cellulitis or abscess. I doubt wound infection. Although patient complaining of lesions on his penis and his foot, I could not discern any lesions on exam. Patient's wound is cleansed and dressed with occlusive dressing. I do not feel that he needs any antibiotic treatment. Patient will be referred to [facility] for further wound care. Patient also requests Seroquel refill. Advised patient that this is the third time this year that he had requested cervical refill from this ED. We will not be able to provide him with any further refills. Patient will be given 1 week worth of refill, and advised follow-up with his PCP. Community clinic referral also provided for patient for follow-up. Patient appears well, stable for discharge and outpatient management. Medical decision making shared with patient and family. Education provided to patient and family. Patient and family expressed understanding of the plan. Medications on discharge: Seroquel Follow-up: Primary care provider in 2-3 days or return to ED if worse. The case was reviewed and discussed with Dr. Butler, who agrees with the plan of care including labs, treatment, and advanced imaging as appropriate. Disclaimer: Inadvertent spelling and grammatical errors are likely due to EHR/ dictation software use and do not reflect on the overall quality of patient care. Also, please note that the electronic time recorded on this note does not necessarily reflect the actual time of the patient encounter. Departure Diagnosis: Primary Impression: Skin ulcer Additional Impression: Medication refill Condition: Good Patient Instructions: Skin Ulcer, Simple Referrals: [facility] YOU HAVE RECEIVED A MEDICAL SCREENING EXAM AND THE RESULTS INDICATE THAT YOU DO NOT HAVE A CONDITION THAT REQUIRES URGENT TREATMENT IN THE EMERGENCY DEPARTMENT. FURTHER EVALUATION AND TREATMENT OF YOUR CONDITION CAN WAIT UNTIL YOU ARE SEEN IN YOUR DOCTORS OFFICE WITHIN THE NEXT 1-2 DAYS. IT IS YOUR RESPONSIBILITY TO MAKE AN APPOINTMENT FOR FOLOW-UP CARE. IF YOU HAVE A PRIMARY DOCTOR --you should call your primary doctor and schedule an appointment IF YOU DO NOT HAVE A PRIMARY DOCTOR YOU CAN CALL OUR PHYSICIAN REFERRAL HOTLINE AT IF YOU CAN NOT AFFORD TO SEE A PHYSICIAN YOU CAN CHOSE FROM THE FOLLOWING [facility] [address] [facility] [address] [facility] [address] [facility] [facility] [address] [facility] [facility] [address] [facility]. [facility] [address] Additional Instructions: Call your primary care doctor TOMORROW for an appointment during the next 2-3 days.See the doctor sooner or return here if your condition worsens before your appointment time. Call [facility] (field technical specialist) for a follow up appointment. DEON RODRIGUEZ NP Apr 12, 2017 04:44
== END 2017-04-12 03:37 | disposition home or self-care (01) ==
LOC: FTE 23:50
DX: L98.499 Non-pressure chronic ulcer of skin of other sites with unspecified severity (principal); L02.414 Cutaneous abscess of left upper limb; R40.2412 Glasgow coma scale score 13-15, at arrival to emergency department; F17.210 Nicotine dependence, cigarettes, uncomplicated; Z76.0 Encounter for issue of repeat prescription
CPT/HCPCS: 99283

== ENCOUNTER 2017-04-24 13:23 | Emergency (ER) | payer OTHER ==
[~2017-04-24] VITALS: Ht 182.9 cm; Wt 98.0 kg
[~2017-04-24 13:23] MED LIST changes: +QUET400T PO
[2017-04-24 13:26] VITALS: Ht 182.9 cm; Wt 98.0 kg
[2017-04-24] MEDS ORDERED: QUET400T PO (14:27)
--- NOTE | 2017-04-24 18:19 | ERD ---
ER Documentation Chief Complaint Date/Time DATE: 04/24/17 TIME: 18:16 Chief Complaint refill of seroquel HPI 51-year-old man here for medication refill. He has a history of schizophrenia and is requesting refill of Seroquel. He denies suicidal homicidal ideation, no fevers or chills, no chest pain or shortness of breath. ROS All systems reviewed and are negative except as per history of present illness. Medications Home Meds Active Scripts Quetiapine Fumarate* (Seroquel*) 400 Mg Tablet, 400 MG PO BID, #60 TAB Prov:KAYE MOSES MD 04/24/17 Quetiapine Fumarate* (Seroquel*) 400 Mg Tablet, 400 MG PO BID, #14 TAB Prov:DEON RODRIGUEZ NP 04/12/17 Quetiapine Fumarate* (Seroquel*) 25 Mg Tablet, 25 MG PO BID, #28 TAB Prov:CONSTANTINE GUERIN PA-C 04/04/17 Cephalexin* (Keflex*) 500 Mg Capsule, 500 MG PO QID for 5 Days, CAP Prov:CONSTANTINE GUERIN PA-C 04/04/17 Sulfamethoxazole/Trimethoprim* (Bactrim Ds* Tablet) 1 Each Tablet, 1 TAB PO BID , #14 TAB Prov:CONSTANTINE GUERIN PA-C 04/04/17 Quetiapine Fumarate* (Seroquel*) 300 Mg Tablet, 300 MG PO BID for 30 Days, TAB Prov:DENITA FOX PA-C 01/17/17 Reported Medications Methadone Hcl* (Methadone*) 10 Mg Tab, 10 MG PO DAILY, TAB [facility] 01/17/17 Quetiapine Fumarate* (Quetiapine Fumarate*) 300 Mg Tablet, 300 MG PO BID, TAB 01/17/17 Allergies Allergies: Coded Allergies: No Known Allergy (Unverified , 04/24/17) PMhx/Soc Schizophrenia Medical and Surgical Hx: pt denies Surgical Hx History of Surgery: No Anesthesia Reaction: No Hx Neurological Disorder: No Hx Respiratory Disorders: No Hx Cardiac Disorders: No Hx Psychiatric Problems: Yes (bipolar, depression; ANXIETY) Hx Miscellaneous Medical Probl: No Hx Alcohol Use: Yes (HX OF SOCIAL DRINKING.) Hx Substance Use: No (history of opiate use) Hx Tobacco Use: Yes (CIGGARETES.) Smoking Status: Current every day smoker FmHx Family History: No diabetes Physical Exam Vitals Vital Signs Date Time Temp Pulse Resp B/P Pulse Ox O2 Delivery O2 Flow Rate FiO2 04/24/17 13:26 98.1 89 20 139/89 99 Physical Exam GENERAL: Well-developed, well-nourished, well-hydrated, in no apparent distress , looks nontoxic in appearance HEENT: Moist mucous membranes, pink conjunctiva, no cervical spine tenderness or step-off deformities, no goiter, no jaundice or icterus, extraocular movements intact without pain. No submandibular induration, and no pharyngeal erythema NEURO: Alert and oriented 3, cranial nerves II through XII intact bilaterally, pupils equal round reactive to light, no focal deficits or facial asymmetry, sensation intact distally Strength 5/5 in upper and lower extremities bilaterally CARDIAC: Regular rate and rhythm, no murmurs rubs or gallops LUNGS: Clear bilaterally no wheezing crackles or stridor ABDOMEN: Soft nontender, no guarding, no rigidity, no rebound, no psoas sign no obturator sign. Normoactive bowel sounds SKIN: Warm and dry to touch, no abrasions, contusions, or hematomas, no lacerations, no ecchymosis, no target lesions, and without ulcers EXTREMITIES: No clubbing cyanosis or edema, calves are bilaterally symmetrical, no Homans sign, no popliteal cord sign. Distal pulses equal and bilateral PSYCH: Normal affect without agitation or irritability Procedures/MDM I agreed to refill his quetiapine prescription. Patient feels much better at this time, and vital signs are normal, symptoms have improved. I did give strict instructions to return to the ED if symptoms continue or worsen, patient will otherwise follow-up with primary care physician. Patient understood instructions and agreed to plan. Disclaimer: Inadvertent spelling and grammatical errors are likely due to EHR/ dictation software use and do not reflect on the overall quality of patient care. Also, please note that the electronic time recorded on this note does not necessarily reflect the actual time of the patient encounter. Departure Diagnosis: Primary Impression: Schizo affective schizophrenia Additional Impression: Encounter for medication refill Condition: Good Patient Instructions: Toya, General KAYE MOSES MD Apr 24, 2017 18:19
== END 2017-04-24 14:54 | disposition home or self-care (01) ==
LOC: FTE 13:23
DX: F25.9 Schizoaffective disorder, unspecified (principal); F17.210 Nicotine dependence, cigarettes, uncomplicated
CPT/HCPCS: 99281

== ENCOUNTER 2017-07-10 18:55 | Emergency (ER) | payer SELFPAY | END 2017-07-10 19:58 | disposition left against medical advice (07) | LOC: E/R 18:55 | DX: Z53.21 Procedure and treatment not carried out due to patient leaving prior to being seen by health care provider (principal) ==

== ENCOUNTER 2017-08-02 17:32 | Emergency (ER) | payer SELFPAY ==
[~2017-08-02] VITALS: Ht 185.4 cm; Wt 88.2 kg
[2017-08-02 17:41] VITALS: Ht 185.4 cm; Wt 88.2 kg
== END 2017-08-02 17:45 | disposition left against medical advice (07) ==
LOC: E/R 17:32
DX: Z53.21 Procedure and treatment not carried out due to patient leaving prior to being seen by health care provider (principal)

== ENCOUNTER 2017-08-04 15:49 | Emergency (ER) | payer SELFPAY ==
[~2017-08-04] VITALS: Ht 185.4 cm; Wt 86.0 kg
[2017-08-04 15:56] VITALS: Ht 185.4 cm; Wt 86.0 kg
--- NOTE | 2017-08-04 17:10 | ERD ---
ER Documentation Chief Complaint Chief Complaint ABRASIONS AND RASHES ALL OVER THE BODY HPI 52-year-old male, with history of mental illness presents to the emergency department complaining of multiple nonhealing ulcers in his body, the patient states that he has something under the skin that wants to get out. Denies fevers, chills ROS All systems reviewed and are negative except as per history of present illness. Medications Home Meds Active Scripts Mupirocin* (Bactroban*) 2% -22 Gram Oint...g., 1 APPLIC TOP BID for 7 Days, EA Prov:AURELIA SPARROW MD 08/04/17 Quetiapine Fumarate* (Seroquel*) 400 Mg Tablet, 400 MG PO BID, #60 TAB Prov:KAYE MOSES MD 04/24/17 Quetiapine Fumarate* (Seroquel*) 400 Mg Tablet, 400 MG PO BID, #14 TAB Prov:DEON RODRIGUEZ NP 04/12/17 Quetiapine Fumarate* (Seroquel*) 25 Mg Tablet, 25 MG PO BID, #28 TAB Prov:CONSTANTINE GUERIN PA-C 04/04/17 Cephalexin* (Keflex*) 500 Mg Capsule, 500 MG PO QID for 5 Days, CAP Prov:CONSTANTINE GUERIN PA-C 04/04/17 Sulfamethoxazole/Trimethoprim* (Bactrim Ds* Tablet) 1 Each Tablet, 1 TAB PO BID , #14 TAB Prov:CONSTANTINE GUERIN PA-C 04/04/17 Quetiapine Fumarate* (Seroquel*) 300 Mg Tablet, 300 MG PO BID for 30 Days, TAB Prov:DENITA FOX PA-C 01/17/17 Reported Medications Methadone Hcl* (Methadone*) 10 Mg Tab, 10 MG PO DAILY, TAB [facility] 01/17/17 Quetiapine Fumarate* (Quetiapine Fumarate*) 300 Mg Tablet, 300 MG PO BID, TAB 01/17/17 Allergies Allergies: Coded Allergies: No Known Allergy (Unverified , 04/24/17) PMhx/Soc Medical and Surgical Hx: pt denies Medical Hx, pt denies Surgical Hx History of Surgery: No Anesthesia Reaction: No Hx Neurological Disorder: No Hx Respiratory Disorders: No Hx Cardiac Disorders: No Hx Psychiatric Problems: Yes (bipolar, depression; ANXIETY; schizophrenia) Hx Miscellaneous Medical Probl: No Hx Alcohol Use: No Hx Substance Use: No Hx Tobacco Use: No Physical Exam Vitals Vital Signs Date Time Temp Pulse Resp B/P Pulse Ox O2 Delivery O2 Flow Rate FiO2 08/04/17 15:56 98.1 96 18 144/73 96 Physical Exam Const: Patient looks disheveled, no eye contact Resp: Clear to auscultation bilaterally Cardio: Regular rate and rhythm, no murmurs Skin: multiple abrasions and excoriations on extremities Back: No midline or flank tenderness Ext: No cyanosis, or edema Neur: Awake and alert Results 24 hrs Current Medications Medications (Trade) Dose Ordered Sig/Delvis Route PRN Reason Start Time Stop Time Status Last Admin Dose Admin Bacitracin (Bacitracin Oint (Ud)) 1 applic ONCE ONCE TOP 08/04/17 17:30 08/04/17 17:31 UNV Procedures/MDM 51-year-old male with a history of psychiatric disorder presented to ED with multiple skin abrasions. Physical exam revealed a disheveled, taking in short sentences, states that he has "something under the skin that wants to come out" I suspect his voaq-zmet-mxg motions are due to picking, as evidenced by his bloodstained fingertips. No signs of infection. Patient's wound is cleansed and dressed with occlusive dressing. Bacitracin packages given. Community clinic referral also provided for patient for follow-up. Patient appears well, stable for discharge and outpatient management. The patient was instructed to follow up with the primary care provider in the next 48h. If symptoms persist, worsen or new symptoms develop, then patient should return to the ED immediately. Instructions explained and given to patient in Tajik with acknowledgment and demonstrated understanding. Disclaimer: Inadvertent spelling and grammatical errors are likely due to EHR/ dictation software use and do not reflect on the overall quality of patient care. Also, please note that the electronic time recorded on this note does not necessarily reflect the actual time of the patient encounter. AURELIA SPARROW MD Aug 04, 2017 17:10
[2017-08-04] MEDS ORDERED: MUPI22OI2 TOP (17:11)
[2017-08-04] MEDS ORDERED: BACITRACIN 0.9 GM OINT TOP ONE (17:30)
== END 2017-08-04 18:05 | disposition home or self-care (01) ==
LOC: FTE 15:49
DX: T14.8XXA Other injury of unspecified body region, initial encounter (principal); X58.XXXA Exposure to other specified factors, initial encounter; Y92.9 Unspecified place or not applicable
CPT/HCPCS: 99283

== ENCOUNTER 2018-04-11 08:33 | Emergency (ER) | END 2018-04-11 09:37 | disposition home or self-care (01) ==

== ENCOUNTER 2018-05-02 13:12 | Emergency (ER) | END 2018-05-02 22:15 | disposition home or self-care (01) ==

== ENCOUNTER 2018-05-21 17:16 | Emergency (ER) | END 2018-05-21 23:31 | disposition left against medical advice (07) ==

== ENCOUNTER 2018-09-09 14:17 | Emergency (ER) | END 2018-09-09 17:02 | disposition home or self-care (01) ==

== ENCOUNTER 2018-11-05 15:48 | Emergency (ER) | payer OTHER ==
[~2018-11-05] VITALS: Ht 188 cm; Wt 85.0 kg
[~2018-11-05 15:48] MED LIST changes: -CEPH-443 PO; +QUET100T32 PO; -QUET25TA26 PO; -QUET300T13 PO; -QUET300T18 PO; -SULF1TAB31 PO
[2018-11-05 15:52] VITALS: BP 144/67; PULSE 94; RESP 18; Ht 188 cm; Wt 85.0 kg
--- NOTE | 2018-11-05 16:31 | ERD ---
ER Documentation Chief Complaint Chief Complaint right hand pain & request for methadone meds? HPI 53 year-old [male] coming in today with Chief Complaint: Patient refill History of Present Illness: Patient coming in today with complaint of medication refill. Reports out of methadone. In desires to get a refill. Patient reporting right hand pain. Unknown etiology of pain. Review of systems: All systems were reviewed and are negative except for what is indicated in the history of present illness. Past Medical History: [Negative for hypertension, diabetes or other medical problems]; patient denies medical history, surgical history Social History: Unable to obtain social history, patient reports "put whatever you want" when asking tobacco, alcohol, elicit drug status Medications: [Reviewed as documented Nursing Notes] Allergies: [NKDA] Social Concerns: Unable to obtain ROS All systems reviewed and are negative except as per history of present illness. Medications Home Meds Active Scripts Quetiapine Fumarate* (Seroquel*) 400 Mg Tablet, 400 MG PO BID, #20 TAB Prov:ZARA HWANG MD 09/09/18 Reported Medications Quetiapine Fumarate* (Quetiapine Fumarate*) 100 Mg Tablet, 100 MG PO BID, TAB 09/09/18 Methadone Hcl* (Methadone*) 10 Mg Tab, 45 MG PO DAILY, TAB PER PT GETS M[facility]ONE AT [facility] ([facility]) [phone] OR [facility] [phone] 09/09/18 Allergies Allergies: Coded Allergies: No Known Allergy (Unverified , 05/02/18) PMhx/Soc History of Surgery: No Anesthesia Reaction: No Hx Neurological Disorder: No Hx Respiratory Disorders: No Hx Cardiac Disorders: No Hx Psychiatric Problems: Yes (on seroquel/klonopin) Hx Miscellaneous Medical Probl: No (Denies) Hx Alcohol Use: No Hx Substance Use: Yes Hx Tobacco Use: Yes Smoking Status: Former smoker Physical Exam Vitals Vital Signs Date Temp Pulse Resp B/P (MAP) Pulse Ox O2 O2 Flow FiO2 Time Delivery Rate 11/05/18 99.1 94 18 144/67 98 15:52 (92) Physical Exam Const: No acute distress Head: Atraumatic Eyes: Normal Conjunctiva ENT: Normal External Ears, Nose and Mouth. Neck: Full range of motion. No meningismus. Ext: No cyanosis, or edema Neur: Awake and alert Psych: Agitated Procedures/MDM Patient with complaint of medication of methadone and right hand pain Unable to obtain complete history and physical. Patient became agitated during examination. Patient stormed out of room and reports "I am getting the hell out of here, I am not answering your questions" Patient eloped at 1625. Departure Diagnosis: Primary Impression: Pain of hand Laterality: right Qualified Codes: M79.641 - Pain in right hand Additional Impressions: Encounter for medication refill Methadone dependence Condition: MATT Magallon NP Nov 05, 2018 16:31
== END 2018-11-05 18:16 | disposition left against medical advice (07) ==
LOC: FTE 15:48
DX: M79.641 Pain in right hand (principal); F11.20 Opioid dependence, uncomplicated; Z76.0 Encounter for issue of repeat prescription; Z87.891 Personal history of nicotine dependence
CPT/HCPCS: 99281

== ENCOUNTER 2018-11-19 13:49 | Emergency (ER) | payer OTHER ==
[~2018-11-19] VITALS: Wt 86.0 kg
[2018-11-19] MEDS ORDERED: QUET400T PO (16:46)
[2018-11-19 17:03] VITALS: BP 139/77; PULSE 74; RESP 18
--- NOTE | 2018-11-19 17:47 | ERD ---
ER Documentation Chief Complaint Chief Complaint requesting refill for: seroquel HPI 53-year-old male presents for Seroquel refill. Patient states that we are able to refill his medication here before. Patient denies any suicidal or homicidal ideation or any active hallucinations. Patient denies any symptoms and states he feels fine. ROS All systems reviewed and are negative except as per history of present illness. Medications Home Meds Active Scripts Quetiapine Fumarate* (Seroquel*) 400 Mg Tablet, 400 MG PO BID, #20 TAB Prov:SULAIMAN OVERTON 11/19/18 Reported Medications Quetiapine Fumarate* (Quetiapine Fumarate*) 100 Mg Tablet, 100 MG PO BID, TAB 09/09/18 Methadone Hcl* (Methadone*) 10 Mg Tab, 45 MG PO DAILY, TAB PER PT GETS METHADONE AT [facility] [phone] OR [facility] [phone] 09/09/18 Allergies Allergies: Coded Allergies: No Known Allergy (Unverified , 05/02/18) PMhx/Soc History of Surgery: No Anesthesia Reaction: No Hx Neurological Disorder: No Hx Respiratory Disorders: No Hx Cardiac Disorders: No Hx Psychiatric Problems: Yes (on seroquel/klonopin) Hx Miscellaneous Medical Probl: No (Denies) Hx Alcohol Use: No Hx Substance Use: Yes Hx Tobacco Use: Yes Smoking Status: Current every day smoker FmHx Family History: No diabetes, No coronary disease, No other Physical Exam Vitals Vital Signs Date Temp Pulse Resp B/P (MAP) Pulse Ox O2 O2 Flow FiO2 Time Delivery Rate 11/19/18 97.6 74 18 139/77 98 17:03 (97) 11/19/18 97.4 76 18 146/78 98 14:01 (100) Physical Exam Const: No acute distress Head: Atraumatic Eyes: Normal Conjunctiva ENT: Normal External Ears, Nose and Mouth. Neck: Full range of motion. No meningismus. Resp: Clear to auscultation bilaterally Cardio: Regular rate and rhythm, no murmurs Abd: Soft, non tender, non distended. Normal bowel sounds Skin: No petechiae or rashes Back: No midline or flank tenderness Ext: No cyanosis, or edema Neur: Awake and alert Psych: Normal Mood and Affect Procedures/MDM 53-year-old male presents for Seroquel refill. Patient states that we are able to refill his medication here before. Patient denies any suicidal or homicidal ideation or any active hallucinations. Patient denies any symptoms and states he feels fine. I have low suspicion for acute psychosis, suicidal or homicidal ideation, or any other emergent condition. Patient was given Rx for Seroquel and told that this needs be managed with primary care provider or psychiatrist on outpatient basis. Patient discharged with strict ER precautions. Patient advised to follow up with PMD. All questions answered at discharge. Departure Diagnosis: Primary Impression: Encounter for medication refill Condition: Stable Patient Instructions: Taking Medicine Safely Referrals: [facility] (PCP) Additional Instructions: FOLLOW UP WITH YOUR PRIMARY CARE PHYSICIAN TOMORROW.Return to this facility if you are not improving as expected. SULAIMAN OVERTON Nov 19, 2018 17:47
== END 2018-11-19 17:05 | disposition home or self-care (01) ==
LOC: FTE 13:49
DX: Z76.0 Encounter for issue of repeat prescription (principal); F17.210 Nicotine dependence, cigarettes, uncomplicated
CPT/HCPCS: 99281

== ENCOUNTER 2018-12-06 16:24 | Emergency (ER) | payer OTHER ==
[~2018-12-06] VITALS: Ht 182.9 cm; Wt 89.0 kg
[2018-12-06 16:39] VITALS: Ht 182.9 cm; Wt 89.0 kg
[2018-12-06] MEDS ORDERED: KETOROLAC 30 MG INJ IM STA (19:08)
[2018-12-06] MEDS ORDERED: ALPR0.5T PO (19:11)
[2018-12-06] MEDS ORDERED: IBUP-1542 PO (19:11)
[2018-12-06] MEDS ORDERED: ALPR1TAB2 PO (19:11)
[2018-12-06] MEDS ORDERED: QUET400T PO (19:12)
--- NOTE | 2018-12-06 19:17 | ERD ---
ER Documentation Chief Complaint Chief Complaint needs seroquel and methadone prescription HPI 53-year-old male presents requesting a Seroquel refill. He was out of town and just returned and is reinitiating his primary care. He also is a methadone patient. He has not been going to the clinic as he has been out of town for the last week, although he is scheduled to have new intake in the next 3 days. He had some vomiting which is resolved. He has diarrhea and body aches. Denies shortness of breath or chest pain. Denies illicit drug use. ROS All systems reviewed and are negative except as per history of present illness. Medications Home Meds Active Scripts Quetiapine Fumarate* (Seroquel*) 400 Mg Tablet, 400 MG PO BID, #60 TAB Prov:NOLAN TINSLEY MD 12/06/18 Alprazolam* (Xanax*) 1 Mg Tab, 1 MG PO Q8H PRN for ANXIETY, #5 TAB Prov:NOLAN TINSLEY MD 12/06/18 Ibuprofen* (Motrin*) 600 Mg Tab, 600 MG PO Q6, #15 TAB Prov:NOLAN TINSLEY MD 12/06/18 Quetiapine Fumarate* (Seroquel*) 400 Mg Tablet, 400 MG PO BID, #20 TAB Prov:SULAIMAN OVERTON 11/19/18 Reported Medications Quetiapine Fumarate* (Quetiapine Fumarate*) 100 Mg Tablet, 100 MG PO BID, TAB 09/09/18 Methadone Hcl* (Methadone*) 10 Mg Tab, 45 MG PO DAILY, TAB PER PT [facility] M[facility] [phone] OR [facility] [phone] 09/09/18 Discontinued Scripts Alprazolam* (Xanax*) 0.5 Mg Tab, 0.5 MG PO TID, #5 TAB Prov:NOLAN TINSLEY MD 12/06/18 Allergies Allergies: Coded Allergies: No Known Allergy (Unverified , 05/02/18) PMhx/Soc History of Surgery: No Anesthesia Reaction: No Hx Neurological Disorder: No Hx Respiratory Disorders: No Hx Cardiac Disorders: No Hx Psychiatric Problems: Yes (on seroquel/klonopin) Hx Miscellaneous Medical Probl: No (Denies) Hx Alcohol Use: No Hx Substance Use: Yes Hx Tobacco Use: Yes Smoking Status: Current every day smoker FmHx Family History: No diabetes, No coronary disease, No other Physical Exam Vitals Vital Signs Date Temp Pulse Resp B/P (MAP) Pulse Ox O2 O2 Flow FiO2 Time Delivery Rate 12/06/18 100.2 133 20 133/71 99 16:39 (91) Physical Exam Const: No acute distress Head: Atraumatic Eyes: Normal Conjunctiva ENT: Normal External Ears, Nose and Mouth. Neck: Full range of motion. No meningismus. Resp: Clear to auscultation bilaterally Cardio: Regular rate and rhythm, no murmurs Abd: Soft, non tender, non distended. Normal bowel sounds Skin: No petechiae or rashes Back: No midline or flank tenderness Ext: No cyanosis, or edema Neur: Awake and alert Psych: Normal Mood and Affect Results 24 hrs Current Medications Medications Dose Sig/Delvis Start Time Status Last (Trade) Ordered Route PRN Stop Time Admin Dose Reason Admin Ketorolac 30 mg ONCE STAT 12/06/18 DC Tromethamine IM 19:08 (Toradol) 12/06/18 19:09 Alprazolam 1 mg ONCE ONCE 12/06/18 (Xanax) PO 19:30 12/06/18 19:31 Procedures/MDM Patient presents with a request for Seroquel. He will be prescribed 400 mg twice a day with instructions to follow primary doctor and psychiatry. Denies any homicidal or suicidal ideation. Patient is acting appropriately and pleasant. Patient appears to be undergoing mild opiate withdrawals. He is scheduled to resume his methadone treatment this week. He was given Toradol 30 mg IM. We will give 2-day course of Xanax for anxiety and withdrawal symptoms which appear to be improving. He should return for fevers, vomiting, shortness of breath, chest pain, abdominal pain, new worsening symptoms with primary care doctor otherwise with his usual outpatient medical care as scheduled. The patient was stable with no new complaints during the ER course. Clinically, there is no current evidence to suggest meningitis, sepsis, acute abdomen, pneumonia, stroke, acute coronary syndrome, pulmonary embolism, aortic dissection or any other emergent condition appearing to require further evaluation or hospitalization. Patient counseled regarding my diagnostic impression and care plan. Prior to discharge all questions answered. Pt agrees with treatment plan and understands strict return precautions. Pt is instructed to follow up with primary care provider within 24-48 hours. Precautionary instructions provided including instructions to return to the ER if not improving or for any worsening or changing symptoms or concerns. Departure Diagnosis: Primary Impression: Encounter for medication refill Additional Impression: Schizo affective schizophrenia Condition: Stable Patient Instructions: Taking Medicine Safely Referrals: [facility] (PCP) Additional Instructions: Recheck with primary doctor as scheduled. Recheck otherwise for fevers, vomiting, new worsening symptoms. NOLAN TINSLEY MD Dec 06, 2018 19:17
[2018-12-06] MEDS ORDERED: ALPRAZOLAM 1 MG TAB PO ONE (19:30)
[2018-12-06 19:45] VITALS: BP 122/76; PULSE 79; RESP 18
== END 2018-12-06 19:53 | disposition home or self-care (01) ==
LOC: FTE 16:24
DX: F20.9 Schizophrenia, unspecified (principal); F17.210 Nicotine dependence, cigarettes, uncomplicated
CPT/HCPCS: 96372; J1885; Z7502; Z7610

== ENCOUNTER 2019-03-22 21:05 | Emergency (ER) | payer OTHER ==
[~2019-03-22] VITALS: Ht 185.4 cm; Wt 89.3 kg
[~2019-03-22 21:05] MED LIST changes: +ALPR1TAB2 PO; +BACITUD TOP; +CEPH-443 PO; +IBUP-1542 PO; +SULF1TAB31 PO
[2019-03-22 21:08] VITALS: Ht 185.4 cm; Wt 89.3 kg
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
[2019-03-23 03:10] VITALS: BP 136/68; PULSE 96; RESP 24
--- NOTE | 2019-03-23 10:03 | QN ---
Documentation Comment Observation Note: Time: 4 hours Family Hx: Negative for diabetes Evaluation: Multiple exams showed improving symptoms and no evidence of clinical decompensation. NATHAN MARI MD Mar 23, 2019 10:03
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
== END 2019-03-23 11:00 | disposition left against medical advice (07) ==
LOC: E/R 21:05
DX: F99 Mental disorder, not otherwise specified (principal); F17.210 Nicotine dependence, cigarettes, uncomplicated; F25.9 Schizoaffective disorder, unspecified; R40.2142 Coma scale, eyes open, spontaneous, at arrival to emergency department; R40.2362 Coma scale, best motor response, obeys commands, at arrival to emergency department; R40.2252 Coma scale, best verbal response, oriented, at arrival to emergency department
CPT/HCPCS: 80053; 80307; 81003; 85025; 99283

== ENCOUNTER 2019-05-01 02:09 | Emergency (ER) | payer OTHER ==
[~2019-05-01] VITALS: Ht 185.4 cm; Wt 89.1 kg
[2019-05-01 02:16] VITALS: BP 128/73; PULSE 108; RESP 20; Ht 185.4 cm; Wt 89.1 kg
--- NOTE | 2019-05-01 02:33 | ERD ---
ER Documentation Chief Complaint Chief Complaint BL FOREARMS SKIN LESION HPI The patient is a 53-year-old male, presenting to the ER because of bilateral forearm skin lesion for 5 days, he did not want to asked to explain why he got them. He is evasive and not want to provide much history. He denies fever, chills, neck pain, chest pain, dyspnea Past medical history: Depression, history of psychiatric illness, chronic pain syndrome Past surgical history: None recently ROS All systems reviewed and are negative except as per history of present illness. Medications Home Meds Active Scripts Bacitracin* (Bacitracin Oint (UD)*) 1 Applic Oint, 1 APPLIC TOP BID, #20 PKT APPLY TO Prov:CONSTANTINE MADDOX MD 05/01/19 Sulfamethoxazole/Trimethoprim* (Bactrim Ds* Tablet) 1 Each Tablet, 1 TAB PO BID, #20 TAB Prov:CONSTANTINE MADDOX MD 05/01/19 Cephalexin* (Keflex*) 500 Mg Capsule, 500 MG PO QID for 10 Days, CAP Prov:CONSTANTINE MADDOX MD 05/01/19 Quetiapine Fumarate* (Seroquel*) 400 Mg Tablet, 400 MG PO BID, #60 TAB Prov:NOLAN TINSLEY MD 12/06/18 Alprazolam* (Xanax*) 1 Mg Tab, 1 MG PO Q8H PRN for ANXIETY, #5 TAB Prov:NOLAN TINSLEY MD 12/06/18 Ibuprofen* (Motrin*) 600 Mg Tab, 600 MG PO Q6, #15 TAB Prov:NOLAN TINSLEY MD 12/06/18 Quetiapine Fumarate* (Seroquel*) 400 Mg Tablet, 400 MG PO BID, #20 TAB Prov:SULAIMAN OVERTON 11/19/18 Reported Medications Quetiapine Fumarate* (Quetiapine Fumarate*) 100 Mg Tablet, 100 MG PO BID, TAB 09/09/18 Methadone Hcl* (Methadone*) 10 Mg Tab, 45 MG PO DAILY, TAB PER PT GETS METHADONE AT [facility] ([facility]) [phone] OR [facility] [phone] 09/09/18 Allergies Allergies: Coded Allergies: No Known Allergy (Unverified , 05/02/18) PMhx/Soc History of Surgery: No Anesthesia Reaction: No Hx Neurological Disorder: Yes (DEPRESSION) Hx Respiratory Disorders: No Hx Cardiac Disorders: No Hx Psychiatric Problems: Yes (on seroquel/klonopin) Hx Miscellaneous Medical Probl: No Hx Alcohol Use: No Hx Substance Use: Yes Hx Tobacco Use: Yes Physical Exam Vitals Vital Signs Date Temp Pulse Resp B/P (MAP) Pulse Ox O2 O2 Flow FiO2 Time Delivery Rate 05/01/19 100.2 108 20 128/73 97 02:16 (91) Physical Exam Const: No acute distress. Head: Atraumatic. Eyes: Normal Conjunctiva. ENT: Normal External Ears, Nose and Mouth. Neck: Full range of motion. No meningismus. Resp: Clear to auscultation bilaterally. Cardio: Regular rate and rhythm. Abd: Soft, non distended, normal bowel sounds, non tender. Skin: No petechiae or rashes. Back: No midline or flank tenderness. Ext: Bilateral forearms with multiple skin lesion with scab, no vesicle/pustule Neur: Awake and alert. No focal deficit Psych: Normal Mood and Affect. Procedures/MDM MEDICAL MAKING DECISION: The patient is a 53-year-old male, presenting with acute bilateral forearm skin lesions, most likely due skin pickings/? IV drugs, is above outpatient follow-up The differential diagnoses considered include but are not limited to cellulitis, abscess, endocarditis, pneumonia Departure Diagnosis: Primary Impression: Cellulitis Condition: Good Comments He was treated with Keflex, Bactrim yes, bacitracin ointment I discussed the findings with the patient. I advised the patient to follow-up with the primary physician in about 1-2 days, sooner if needed and return if any concern. Disclaimer: Inadvertent spelling and grammatical errors are likely due to EHR/dictation software use and do not reflect on the overall quality of patient care. Also, please note that the electronic time recorded on this note does not necessarily reflect the actual time of the patient encounter. CONSTANTINE MADDOX MD May 01, 2019 02:33
== END 2019-05-01 03:10 | disposition home or self-care (01) ==
LOC: E/R 02:09
DX: L03.90 Cellulitis, unspecified (principal); Z87.891 Personal history of nicotine dependence
CPT/HCPCS: 99283